=== PATIENT | female | born 1990 | race Two or more races ===

== ENCOUNTER 2020-07-24 21:30 | Emergency (ER) | payer MEDICAID ==
[~2020-07-24] VITALS: Ht 165.1 cm; Wt 65.8 kg
[2020-07-24 22:10] LABS: CALCIUM, SERUM 8.1 mg/dL (8.5-10.1); CARBON DIOXIDE 31 mmol/L (21-32); CHLORIDE 104 mmol/L (98-107); CREATININE 0.9 mg/dL (0.6-1.3); GLUCOSE 97 mg/dL (74-106); POTASSIUM 3.6 mmol/L (3.5-5.1); SODIUM SERUM 146 mmol/L (136-145); UREA NITROGEN, BLOOD 7 mg/dL (7-18)
[2020-07-24 22:17] LABS: ALANINE AMINOTRANSFERASE 35 U/L (12-78); ALCOHOL, BLOOD 471 mg/dL (0-0); ALKALINE PHOSPHATASE 87 U/L (46-116); ASPARTATE AMINOTRANSFERASE 43 U/L (15-37); BASOPHILS # (AUTO) 0.1 /CMM (0.0-0.2); BASOPHILS % (AUTO) 1.8 % (0.0-2.0); BILIRUBIN,DIRECT 0.3 mg/dL (0.0-0.2); EOSINOPHILS % (AUTO) 0.9 % (0.0-6.0); HEMATOCRIT 43 % (33-45); HEMOGLOBIN 14.5 g/dL (11.5-14.8); LYMPHOCYTES # (AUTO) 2.2 /CMM (0.8-4.8); LYMPHOCYTES % (AUTO) 35.9 % (20.0-44.0); MEAN CORPUSCULAR HGB CONC 34 g/dl (31.0-36.0); MEAN CORPUSCULAR VOLUME 90 fL (82-100); MONOCYTES # (AUTO) 0.4 /CMM (0.1-1.30); MONOCYTES % (AUTO) 6.6 % (2.0-12.0); NEUTROPHILS # (AUTO) 3.3 /CMM (1.8-8.9); NEUTROPHILS % (AUTO) 54.8 % (43.0-81.0); PLATELET COUNT (AUTO) 236 /CMM (150-450); RED BLOOD CELL COUNT(AUTO) 4.76 MIL/uL (4.0-5.2); TOTAL PROTEIN, SERUM 7.6 g/dL (6.4-8.2); WHITE BLOOD COUNT (AUTO) 6.1 K/uL (4.3-11.0)
--- NOTE | 2020-07-24 22:23 | NUR ---
ELADIA AND [employer] FROM HOME, CALLED IN BY THE PT'S MOTHER. TO ER BED 13. ALERT, AWAKE BUT INTOXICATED-SMELLS OF ALCOHOL. BROUGHT IN FOR DANGER TO SELF WITH SUICIDAL IDEATION. PER KRYSTEN REPORT, PT HAD A BREAK UP AND HAS BEEN DRINKING FOR THE PAST 10 DAYS. MOTHER CALLED [facility] BECAUSE SHE IS CONCERNED BECAUSE SHE IS NOT ACTING NORMAL. [employer] AT BEDSIDE. SITTER AT BEDSIDE AND PT GOWN.
[2020-07-24 22:33] LABS: BILIRUBIN,URINE Negative (NEGATIVE); COLOR,URINE YELLOW (YELLOW); LEUKOCYTE ESTERASE ,URINE Negative (NEGATIVE); NITRITE, URINE Negative (NEGATIVE); PH,URINE 7.5 (5.0-8.0); PROTEIN,URINE Negative (NEGATIVE); UGLUCOSE Negative (NEGATIVE)
[2020-07-24 22:38] LABS: ACETAMINOPHEN 0 ug/ml (10-30)
[2020-07-24 23:51] LABS: RBC,URINE 0-2 /HPF (0-2); WBC,URINE 0-2 /HPF (0-3)
[2020-07-24 23:52] LABS: BACTERIA,URINE None seen /HPF (None Seen); MUCUS,URINE Rare /LPF (None Seen); SQUAMOUS EPITHELIAL CELL,UR Few /HPF (None Seen)
--- NOTE | 2020-07-25 02:25 | NUR ---
PATIENT IS SLEEPING. AROUSABLE THROUGH VERBAL STIMULI. PATIENT IS BREATHING EVENLY AND UNLABORED ON ROOM AIR AT 100%. PATIENT DENIES ANY PAIN/ SHORTNESS OF BREATH. PATIENT IS CONNECTED TO THE MONITOR. SITTER AT BEDSIDE. SIDE RAILS ARE UP FOR SAFETY.
--- NOTE | 2020-07-25 07:10 | NUR ---
ASSESSED PT ON BED ASLEEP EASILY AROUSABLE, NOT IN RESPIRATORY DISTRESS, V/S STABLE, KEPT RESTED AND COMFORTABLE. WILL CONTINUE TO MONITOR.
--- NOTE | 2020-07-25 12:37 | NUR ---
NIKITA faxed clinicals to [facility] [[address] [place] [address]; Unit TEL: [phone] Intake ] for female pt. on 5150 hold for DTS. Pt. stated she is currently experiencing SI with no clear plan. Pt. stated, dont want to live anymore. SW will follow up as needed.
--- NOTE | 2020-07-25 14:51 | NUR ---
NIKITA called [facility] and spoke to Shayy regarding status for admission. Shayy stated they are still reviewing clinicals and will call NIKITA back.
--- NOTE | 2020-07-25 16:17 | NUR ---
3:40pm: This RECORD PRESS TENDER attempted to follow-up with [facility] intake to check on status of referral faxed earlier today, but this RECORD PRESS TENDER called 4 times and was unable to connect with intake department, . This RECORD PRESS TENDER then spoke with Lina, cleaning manager at [facility], who requested for clinicals to be faxed again. IDRIS Acosta in [facility] ED, will fax clinicals to [facility], fax # [phone].
--- NOTE | 2020-07-25 17:46 | NUR ---
pT ACCEPTED TO [facility] UNDER THE CARE OF DR. AKINS. PT IS GOING [facility] ROOM 144-A. NURSE TO NURSE REPORT [phone]
--- NOTE | 2020-07-25 18:20 | NUR ---
[facility] ETA [phone]
[2020-07-25 18:46] VITALS: BP 129/85
--- NOTE | 2020-07-25 19:21 | NUR ---
report given to IDRIS Vargas for shahla
[2020-07-25] MEDS ORDERED: LORAZEPAM 1 MG TABLET ONE (19:49)
[2020-07-25] MEDS: LORAZEPAM 1 MG TABLET PO ONE (19:50)
--- NOTE | 2020-07-25 20:00 | NUR ---
PT LEFT ON GURNEY WITH 2 EMT FROM [facility] UNIT # [id number]. PT IS IN STABLOE CONDITION FOR TRANSPORT. PT IS AMBULATORY. REPORT GIVEN.
== END 2020-07-25 20:27 ==
LOC: ER 21:31
DX: R45.851 Suicidal ideations (principal); F10.129 Alcohol abuse with intoxication, unspecified; Y90.8 Blood alcohol level of 240 mg/100 ml or more; Z20.822 Contact with and (suspected) exposure to COVID-19
CPT/HCPCS: 36415 ×2; 80048; 80076; 80143; 80307; 80320 ×2; 81001; 84703; 85025; 87426; 99285; C9803; G0480

== ENCOUNTER 2021-03-05 09:23 | Emergency (ER) | payer MEDICAID, OTHER ==
[~2021-03-05] VITALS: Ht 167.6 cm; Wt 65.8 kg
--- NOTE | 2021-03-05 09:23 | NUR ---
PT BIBRA 89 FROM HOME C/O SUICIDAL IDEATION. +ETOH LAST NIGHT. PT IS AAOX4, NOT IN RESPIRATORY DISTRESS, V/S STABLE, KEPT RESTED AND COMFORTABLE. WILL CONTINUE TO MONITOR.
--- NOTE | 2021-03-05 09:23 | NUR ---
SITTER AT BEDSIDE FOR 1 TO 1.
--- NOTE | 2021-03-05 09:23 | NUR ---
SITTER AT BEDSIDE FOR 1 TO 1.
--- NOTE | 2021-03-05 09:35 | NUR ---
SEEN AND EXAMINED BY .
--- NOTE | 2021-03-05 09:35 | NUR ---
SEEN AND EXAMINED BY .
--- NOTE | 2021-03-05 09:45 | NUR ---
URINE SPECIMEN COLLECTED AND SENT TO LAB.
--- NOTE | 2021-03-05 09:45 | NUR ---
URINE SPECIMEN COLLECTED AND SENT TO LAB.
[2021-03-05 10:05] LABS: BILIRUBIN,URINE NEGATIVE (NEGATIVE); COLOR,URINE YELLOW (YELLOW); LEUKOCYTE ESTERASE ,URINE MODERATE (NEGATIVE); NITRITE, URINE POSITIVE (NEGATIVE); PH,URINE 7.5 (5.0-8.0); PROTEIN,URINE 30 mg/dl (NEGATIVE); UGLUCOSE NEGATIVE (NEGATIVE)
[2021-03-05 10:09] LABS: BASOPHILS # (AUTO) 0.1 K/uL (0.0-0.2); BASOPHILS % (AUTO) 0.8 % (0.0-2.0); EOSINOPHILS % (AUTO) 0.2 % (0.0-6.0); HEMATOCRIT 38 % (33-45); HEMOGLOBIN 12.8 g/dL (11.5-14.8); LYMPHOCYTES % (AUTO) 10.5 % (20.0-44.0); MEAN CORPUSCULAR HGB CONC 33 g/dl (31.0-36.0); MEAN CORPUSCULAR VOLUME 93 fL (82-100); MONOCYTES # (AUTO) 0.4 K/uL (0.1-1.30); MONOCYTES % (AUTO) 4.3 % (2.0-12.0); NEUTROPHILS # (AUTO) 7.6 K/uL (1.8-8.9); NEUTROPHILS % (AUTO) 84.2 % (43.0-81.0); PLATELET COUNT (AUTO) 223 K/uL (150-450); WHITE BLOOD COUNT (AUTO) 9.1 K/uL (4.3-11.0)
[2021-03-05 11:00] LABS: ALANINE AMINOTRANSFERASE 22 U/L (12-78); ALBUMIN 3.7 g/dL (3.4-5.0); ALCOHOL, BLOOD 178 mg/dL (0-0); ALKALINE PHOSPHATASE 107 U/L (46-116); ASPARTATE AMINOTRANSFERASE 25 U/L (15-37); BILIRUBIN,DIRECT 0.3 mg/dL (0.0-0.2); BILIRUBIN,TOTAL 1.1 mg/dL (0.2-1.0); CALCIUM, SERUM 7.6 mg/dL (8.5-10.1); CARBON DIOXIDE 27 mmol/L (21-32); CHLORIDE 98 mmol/L (98-107); CREATININE 0.8 mg/dL (0.6-1.3); GLUCOSE 84 mg/dL (74-106); POTASSIUM 3.9 mmol/L (3.5-5.1); SODIUM SERUM 136 mmol/L (136-145); TOTAL PROTEIN, SERUM 7.3 g/dL (6.4-8.2); UREA NITROGEN, BLOOD 9 mg/dL (7-18)
[2021-03-05] MEDS ORDERED: NITROFURANTOIN/MONOHYDRATE MACROCRYSTALS 100 MG CAPSULE PO ONE (11:00)
[2021-03-05] MEDS ORDERED: NITROFURANTOIN/MONOHYDRATE MACROCRYSTALS 100 MG CAPSULE ONE (11:04)
[2021-03-05 11:20] LABS: ACETAMINOPHEN 0 ug/ml (10-30)
[2021-03-05 12:42] LABS: BACTERIA,URINE Many /HPF (None Seen); SQUAMOUS EPITHELIAL CELL,UR Few /HPF (None Seen)
--- NOTE | 2021-03-05 14:42 | NUR ---
Pt. is willing to go to [facility]. SW will fax clinical reports over.
--- NOTE | 2021-03-05 14:42 | NUR ---
Pt. is willing to go to [facility]. SW will fax clinical reports over.
--- NOTE | 2021-03-05 14:46 | NUR ---
SS Consult: SS consult for suicidal ideation. Pt. Is a 30-year-old female. Pt. demonstrates adequate insight to the reason for hospitalization. Per pt., he/she was brought to hospital by ambulance due to drinking. Pt. was oriented x3, alert, and cooperative. During interview, pt. was capable of following directions, made appropriate eye-contact, and appeared groomed. Pt.'s speech was at a normal rate. Pt.'s mood was elevated. NIKITA explored pt.'s hx of mental health and substance abuse. Pt. reported no hx of mental health, or homicidal ideation. Pt. denies auditory hallucinations, visual hallucinations, paranoia, or delusions. Pt. stated that she has suicidal thoughts and has tried harming herself by drinking and taking pills. NIKITA explored pt.'s living situation. Per pt., she lives with her mom [[address] [place] [address]]. Per pt., she reports having adequate support from her mom. Pt. expressed that she wants to go to [facility]. NIKITA will fax clinicals over. Plan: NIKITA provided available resources and pt. accepted. Resources Provided: Counseling--Outpatient [facility] [address], [place] [address] (Specializes in in-depth psychotherapy for emotional distress: anxiety, depression, interpersonal conflicts, life transitions, childhood abuse) [facility] [address] [place] [address] (Assist with solving problem marital difficulties, separation & divorce, aging parents, & grief, chronic & terminal illness) [facility] [address] [place] [address] (Deal with loss & grief, anxiety, marital difficulties) [facility] [address], [address] [place] [address] (Provide in-home mental services to people who are incapable of leaving their homes) [facility] [address] [place] [address] [facility] [address] [place] [address] PSYCHIATRIC OUTPATIENT SERVICES [facility] Partial Hospitalization and Intensive Outpatient Program (Managed Care and [place] Only)[address] [facility] [phone] [facility] Partial Hospitalization and Outpatient [address] [place], [place] [phone] [facility] [place] [address] [place], [place] [phone] [facility] Partial Hospitalization and Outpatient Tyiieux71059 [facility], [phone] Substance Abuse resources provided included: [facility] Substance Abuse Self-Helpline ([facility]) ; [facility] [address] [facility]. [place] 9[address] ; [facility] [address] [facility] [address] ; [facility] [address] vdKings Park Psych[facility] [phone] ; [facility] [address] [facility] [phone] ; [facility] 49[address] [facility] [address] ; [facility] [address] [facility] [address] ; [facility] Substance Abuse Helpline([facility])-[facility] ; [facility] ; [facility] [place]; [facility] [place]; [facility] Kade Griffin; [facility]; [place] La Jose Cody; [facility] Amy; [facility] [place], [facility]. Jey Jarrell; Alcoholics Anonymous -[facility]; Ceci ; Marijuana Anonymous -[facility]V; Narcotics Anonymous [email or web address];
--- NOTE | 2021-03-05 14:46 | NUR ---
SS Consult: SS consult for suicidal ideation. Pt. Is a 30-year-old female. Pt. demonstrates adequate insight to the reason for hospitalization. Per pt., he/she was brought to hospital by ambulance due to drinking. Pt. was oriented x3, alert, and cooperative. During interview, pt. was capable of following directions, made appropriate eye-contact, and appeared groomed. Pt.'s speech was at a normal rate. Pt.'s mood was elevated. NIKITA explored pt.'s hx of mental health and substance abuse. Pt. reported no hx of mental health, or homicidal ideation. Pt. denies auditory hallucinations, visual hallucinations, paranoia, or delusions. Pt. stated that she has suicidal thoughts and has tried harming herself by drinking and taking pills. NIKITA explored pt.'s living situation. Per pt., she lives with her mom [[address] [place] [address]]. Per pt., she reports having adequate support from her mom. Pt. expressed that she wants to go to [facility]. NIKITA will fax clinicals over. Plan: NIKITA provided available resources and pt. accepted. Resources Provided: Counseling--Outpatient [facility] [address] [facility], [place] [address] (Specializes in in-depth psychotherapy for emotional distress: anxiety, depression, interpersonal conflicts, life transitions, childhood abuse) [facility] [address] [place] [address] (Assist with solving problem marital difficulties, separation & divorce, aging parents, & grief, chronic & terminal illness) [facility] [address] [place] [address] (Deal with loss & grief, anxiety, marital difficulties) [facility] [address] [place] [address] (Provide in-home mental services to people who are incapable of leaving their homes) [facility] [address] [place] [address] [facility] [address] [place] [address] PSYCHIATRIC OUTPATIENT SERVICES [facility] Partial Hospitalization and Intensive Outpatient Program (Managed Care and [place] Only)[address] [facility] [phone] [facility] Partial Hospitalization and Outpatient I[address] [place], [place] [phone] [facility]ITAL[facility] Owt[address] [facility] [place], [place] [phone] [facility] Partial Hospitalization and Outpatient Mgvqgtd17024 [facility], [phone] Substance Abuse resources provided included: [facility] Substance Abuse Self-Helpline ([facility]) ; [facility] [address] [facility] [place] 9[address] ; [facility] [address] [facility] [address] ; [facility] [address] [place] vdVassar Brothers Medical Center [phone] ; [facility] [address] [facility] [phone] ; [facility] 4940 [facility] [address] ; [facility] [address]09 [facility] [address] ; [facility] Substance Abuse Helpline([facility])-[facility] ; [facility] ; [facility]; [facility] [place]; [facility] Kade Griffin; [facility] [facility]; [place] [facility] Cody; [facility] Amy; [facility], [facility]. Jey Jarrell; Alcoholics Anonymous -SFV; Ceci ; Marijuana Anonymous -[facility]V; Narcotics Anonymous [email or web address];
[2021-03-05 15:44] VITALS: BP 114/80
--- NOTE | 2021-03-05 16:31 | NUR ---
pt got accepted [facility] under the care of Dr. Huang number for report- [phone] ext. [phone]
--- NOTE | 2021-03-05 16:31 | NUR ---
pt got accepted [facility] under the care of Dr. Huang number for report- [phone] ext. [phone]
== END 2021-03-05 17:02 ==
LOC: ER 09:28
DX: F10.129 Alcohol abuse with intoxication, unspecified (principal); Y90.6 Blood alcohol level of 120-199 mg/100 ml; R45.851 Suicidal ideations; Z20.822 Contact with and (suspected) exposure to COVID-19; Z91.14 Patient's other noncompliance with medication regimen
CPT/HCPCS: 36415; 80048; 80076; 80143; 80307; 80320; 81001; 84703; 85025; 87077; 87086; 87186; 87426; 99285; C9803; G0480